=== PATIENT | female | born 1980 | race Caucasian/White ===

== ENCOUNTER 2017-10-04 14:49 | Emergency (ER) | payer MEDICAID ==
[~2017-10-04] VITALS: Ht 152.4 cm; Wt 49.4 kg
[2017-10-04] MEDS ORDERED: BENADRYL25 MG PO (14:56)
[2017-10-04] MEDS ORDERED: CALAMINE180 ML TOP (14:56)
[2017-10-04] MEDS ORDERED: PROVENTIL HFA6.7 GM INH (16:24)
[2017-10-04] MEDS ORDERED: AMOXICILLIN875 MG PO (16:24)
[2017-10-04] MEDS ORDERED: PREDNISONE20 MG PO (16:24)
== END 2017-10-04 16:42 | disposition home or self-care (01) ==
LOC: ED 14:49
DX: J20.9 Acute bronchitis, unspecified (principal); N39.0 Urinary tract infection, site not specified; F15.10 Other stimulant abuse, uncomplicated; F41.9 Anxiety disorder, unspecified; F17.200 Nicotine dependence, unspecified, uncomplicated; Z90.49 Acquired absence of other specified parts of digestive tract; Z88.6 Allergy status to analgesic agent
CPT/HCPCS: 71020; 80053; 81001; 84703; 85025; 94640; 99283; G0480; J7512; Q0163